=== PATIENT | female | born 1980 | race Caucasian/White ===

== ENCOUNTER → 2020-04-18 15:52 | Outpatient (CLI) | payer OTHER, SELFPAY ==
[2020-04-18 17:42] LABS: Absolute Lymphocyte Count 2.85 X10^3/uL (0.83-4.51); Absolute Neutrophil Count 7.7 X10^3/uL (2.0-7.7); Basophil# 0.09 X10^3/uL; Basophil% 0.8 % (0-1); Eosinophil# 0.35 X10^3/uL; Hematocrit 37.4 % (37-47); Hemoglobin 11.9 g/dL (12.0-15.0); Lymphocyte # 2.85 X10^3/ul (4.0); Lymphocyte % 24.2 % (19-41); Mean Corp Hgb Conc 31.8 g/dL (32-36); Mean Corpuscular Hgb 27.9 pg (27.0-32.0); Mean Corpuscular Volume 87.6 fL (81-99); Monocyte# 0.77 X10^3/uL; Monocyte% 6.5 % (0-10); NRBC Flagged by Analyzer 0 % (0-5); Neutrophil # 7.68 X10^3/uL (2.7-7.7); Neutrophil % 65.1 % (47-70); Platelet Count 319 K/mm3 (150-450); RBC Distribution Width CV 14.1 % (11.6-14.6); RBC Distribution Width SD 45.3 fl (35.1-43.9); Red Blood Count 4.27 M/mm3 (4.2-5.4); White Blood Count 11.8 K/mm3 (4.4-11.0)
[2020-04-18 18:09] LABS: ALB/GLOB Ratio 0.8 RATIO (0.9-2.4); AST(SGOT) 14 U/L (15-37); Alanine Aminotransfer ALT/SGPT 21 U/L (13-56); Albumin, Serum 3.3 g/dL (3.2-5.0); Alkaline Phosphatase 89 U/L (45-117); Anion Gap 7 (5-15); BUN 15 mg/dL (7-18); BUN/Creat Ratio 18.3 RATIO (10-20); Calcium,Total 8.6 mg/dL (8.5-10.1); Chloride 106 mmol/L (98-107); Creatinine, Serum 0.82 mg/dL (0.55-1.02); EST Glomerular Filtration Rate 83 mL/min (>60); Est Glom Filt Rate - Afr Amer 100 mL/min (>60); Globulin 3.9 g/dL (2.2-4.2); Glucose 87 mg/dL (74-106); Potassium 3.8 mmol/L (3.5-5.1); Protein, Total 7.2 g/dL (6.4-8.2); Sodium Level 138 mmol/L (136-145); Thyroid Stim Hormone (TSH) 2.63 uIU/mL (0.358-3.74)
== END ==
PROVIDERS: PCP Family Medicine; Referring Provider Family Medicine; Visit Provider Family Medicine
DX: R53.83 Other fatigue (principal)
CPT/HCPCS: 36415; 80053; 84443; 85025

== ENCOUNTER → 2021-03-05 17:37 | Outpatient (CLI) | payer OTHER, SELFPAY | PROVIDERS: PCP Family Medicine; Visit Provider Nurse Practitioner Family | DX: U07.1 COVID-19 (principal) | CPT/HCPCS: 87635; U0005; U0003 ==

== ENCOUNTER 2021-03-10 12:57 | Outpatient (CLI) | payer OTHER, SELFPAY ==
[2021-03-10 13:05] VITALS: BP 154/94; PULSE 104; RESP 20; TEMP 37.1; O2SAT 98; BMI 66.5
[2021-03-10] MEDS: 0.9% Saline Lock 10 ML Syringe IV (13:19)
[2021-03-10 14:17] VITALS: BP 123/91; PULSE 79; RESP 16; TEMP 36.8; O2SAT 98
[2021-03-10 15:01] VITALS: BP 123/90; PULSE 80; RESP 16; TEMP 36.3; O2SAT 100
== END 2021-03-10 15:15 | disposition home or self-care (01) ==
LOC: MS3OUT 12:58 → MS3 12:58
PROVIDERS: PCP Family Medicine; Referring Provider Nurse Practitioner Adult Health; Visit Provider Nurse Practitioner Adult Health
DX: Z23 Encounter for immunization (principal); U07.1 COVID-19
CPT/HCPCS: J7050; M0245; Q0245; A4216

== ENCOUNTER 2021-07-16 20:32 | Emergency (ER) | payer OTHER, SELFPAY ==
[2021-07-16 20:33] VITALS: BP 151/105; PULSE 85; RESP 18; TEMP 36.4; O2SAT 100; BMI 72.4
--- NOTE | 2021-07-16 20:43 | EDS_ITS ---
HPI History of Present Illness Chief Complaint: Upper Extremity Injury Detail of Chief Complaint: Left hand Informant: patient Occured/Mechanism Mechanism/Context: Yes blunt trauma Onset/Context/Timing Onset: Hours (Approximately 1 hour prior to presentation) Context: Sudden Onset Timing: Continuous Quality of Pain: Aching Location: Left hand, finger, Current Severity: Mild Maximum Severity: Moderate Worsened by: Use Relieved by: Nothing Associated Symptoms Associated Symptoms: Negative for Parasthesia, Weakness and Loss of Funtion Narrative Narrative: Patient is a 41-year-old [id number] woman who presents with injury to her left hand. Dog pulled the leash and hand slammed against a fence. She presents because of pain that she localizes to the thumb index long finger of her left hand. Tetanus Immunization: 5-10 years Prior similar symptoms: No Recent Illness/Hospitalization: No PFSH PFSH Medical History no medical history Home Medications NK 07/16/21 [History Last Taken Unknown] Allergy/AdvReac Type Severity Reaction Status Date / Time cephalexin Allergy Intermediate Itching Verified 07/16/21 20:33 sulfamethoxazole Allergy Intermediate Itching Verified 07/16/21 20:33 [From Bactrim] trimethoprim [From Bactrim] Allergy Intermediate Itching Verified 07/16/21 20:33 Family History no significant family his Surgical History (Updated 07/16/21 @ 20:54 by Magali Graham) H/O adenoidectomy History of placement of ear tubes Hx of tonsillectomy S/P ear surgery Social History household members: spouse Smoking Status: Never smoker substance use type: does not use ROS ROS ED Musculoskeletal Musculoskeletal: Reports other Details: Left hand pain involving thumb, index and long finger ; Denies back pain, myalgias or neck pain Integumentary Reports Abrasions; Denies abscess or rash Neurologic Neurologic: Denies paresthesias or weakness Hematologic/Lymphatic Hematologic/Lymphatic: Denies easy bleeding or easy bruising EXAM Physical Exam Const Vital Signs: 07/16/21 20:33 Temperature 97.6 F L Temperature Source Temporal Pulse Rate 85 Respiratory Rate 18 Blood Pressure 151/105 H Blood Pressure Mean 120 Pulse Ox 100 Oxygen Delivery Method Room Air Positive well nourished, well developed and obese General Appearance ED: well developed; Negative for cyanotic, diaphoretic or NAD Nutritional Appearance: obese HEENT normocephalic Eyes PERRL and EOMs intact bilaterally Neck supple Resp normal respiratory effort Cardio regular rate and regular rhythm Extremity full ROM; Negative for normal to inspection Extremity Narrative: There is ecchymosis over the dorsal radial side of the left hand and the thumb, index and long finger. Median, radial and ulnar function intact. The extensor pollicis longus and brevis are intact. The extensor indicis I and a sensor commonest tendon are intact. There is pain to all patient over the proximal, middle and distal phalanx of the index finger and the proximal and distal phalanx of the thumb. There is no subungual hematoma noted. General Extremety ED: Negative for edema General Extremity: Negative for edema Neuro oriented x3, CN's II-XII intact bilaterally and no focal motor deficits Sensorium / Orientation: alert Psych mental status grossly normal Skin Lesions: no lesions Rashes: no rashes Trauma: no lacerations or abrasions MDM MDM MDM Narrative Medical decision making narrative: X-rays obtained to evaluate for contusion versus fracture patient was medicated with NSAID and Valmora. Radiography Diagnostic Testing: Three-view x-ray of the left hand interpreted independently by me at 2130 is negative for fracture, dislocation or subluxation and there is no evidence of foreign body. Discharge Plan Triage Chief Complaint: Upper Extremity Injury ED Provider: Albino Redyd Dx/Rx/DC Orders Clinical Impression: Contusion of left hand including fingers Instructions: ED Hand Contusion Prescriptions: No Action NK RF: 0 Primary Care Provider: Ana Cook Referrals: Ana Cook MD [Primary Care Provider] - As Needed Activity Restrictions/Additional Instructions: 1. You may take either 4 Advil tablets every 8 hours or 2 Aleve tablets every 12 hours for the next 2 to 3 days for pain 2. Apply ice 6-8 times a day for the next 2 to 3 days Disposition Disposition: Home, Self Care
[2021-07-16 20:51] VITALS: BP 145/85; PULSE 77; TEMP 36.4; O2SAT 100
[2021-07-16] MEDS: HYDROcodone Bitartrate/Apap 5/325 Tablet PO (21:15)
[2021-07-16] MEDS: Naproxen 500 MG Tablet PO (21:15)
--- NOTE | 2021-07-16 21:25 | RAD_ITS ---
STUDY: LEFT HAND X-RAY SERIES (3 VIEWS) OF 2117 HOURS ON 07/16/2021 REASON FOR EXAM: 41-year-old female with a left hand injury and pain. TECHNIQUE: 3. view(s) of the hand. COMPARISON: None. FINDINGS: No findings of fractures or dislocations. No significant arthritic or degenerative changes. No osseous lytic, sclerotic or mass lesions. Normal radiocarpal articulation. Normal distal radioulnar joint. Normal visualized carpal bones. Normal carpal articulations Normal carpometacarpal articulation of the thumb. Normal second through fifth carpometacarpal joints. Normal metacarpi. Normal metacarpophalangeal joint of the thumb. Normal interphalangeal joint of the thumb. Normal proximal and distal phalanges of the thumb. Normal metacarpophalangeal joints of the second through fifth fingers. Normal proximal and distal interphalangeal joints of the second through fifth fingers. Normal phalanges of the second through fifth fingers. The soft tissue structures are unremarkable. RAD/Hand Min 3 Views IMPRESSION: 1. Normal x-ray examination of the hand. 2. No fractures or dislocations. Electronically Signed: Antonio Hawkins MD at 22:37 EDT ,
[2021-07-16 21:55] VITALS: BP 134/78; PULSE 78; RESP 16; O2SAT 98
== END 2021-07-16 21:57 | disposition home or self-care (01) ==
PROVIDERS: Emergency Provider Emergency Medicine; PCP Family Medicine; Visit Provider Emergency Medicine
DX: S60.222A Contusion of left hand, initial encounter (principal); S67.20XA Crushing injury of unspecified hand, initial encounter; W23.0XXA Caught, crushed, jammed, or pinched between moving objects, initial encounter
CPT/HCPCS: 73130; 96374; 99283

== ENCOUNTER → 2022-11-12 | Outpatient (CLI) | payer OTHER, SELFPAY ==
[2022-11-12 18:10] LABS: Insulin 14.3 mU/L (2.6-37.6)
[2022-11-12 18:14] LABS: Hemoglobin A1c 5.1 % (3.8-5.6)
[2022-11-12 18:17] LABS: ALB/GLOB Ratio 0.9 RATIO (0.9-2.4); AST(SGOT) 16 U/L (15-37); Alanine Aminotransfer ALT/SGPT 26 U/L (13-56); Albumin, Serum 3.6 g/dL (3.2-5.0); Alkaline Phosphatase 91 U/L (45-117); Anion Gap 5 (5-15); BUN 14 mg/dL (7-18); BUN/Creat Ratio 18.2 RATIO (10-20); Calcium,Total 9.3 mg/dL (8.5-10.1); Chloride 107 mmol/L (98-107); Creatinine, Serum 0.77 mg/dL (0.55-1.02); EST Glomerular Filtration Rate 88 mL/min (>60); Est Glom Filt Rate - Afr Amer 106 mL/min (>60); Glucose 91 mg/dL (74-106); Protein, Total 7.6 g/dL (6.4-8.2); Sodium Level 138 mmol/L (136-145); Thyroid Stim Hormone (TSH) 1.86 uIU/mL (0.358-3.74)
[2022-11-19 10:12] LABS: HPV HC, High Risk Negative
== END | disposition home or self-care (01) ==
LOC: MFPLAB 14:49
PROVIDERS: PCP Family Medicine; Visit Provider Family Medicine
DX: E66.01 Morbid (severe) obesity due to excess calories (principal); Z12.4 Encounter for screening for malignant neoplasm of cervix
CPT/HCPCS: 36415; 80053; 83036; 83525; 84443; 87624; 88175; G0145

== ENCOUNTER → 2022-12-02 | Outpatient (CLI) | payer OTHER, SELFPAY ==
--- NOTE | 2022-12-02 08:05 | RAD_ITS ---
STUDY: X-RAY - ESOPHAGUS (BARIUM SWALLOW) WITH FLUOROSCOPY REASON FOR EXAM: Female, 42 years old. Food sticking. 12 mm tablet only TECHNIQUE: 16 view(s) of the esophagus were obtained following swallowing of barium. FLUOROSCOPY TIME (if supplied): (33 seconds) minutes/seconds. 42.58 mGy COMPARISON: None. FINDINGS: There is no demonstrated esophageal foreign body. There is no demonstrated stricture or mucosal abnormality. Normal gastroesophageal junction, without a demonstrated hiatal hernia. The patient ingested a 12 mm tablet of barium. The tablet this trapped at the gastroesophageal junction. Normal visualized aortic arch and descending thoracic aorta. Normal visualized pulmonary parenchyma. Normal visualized osseous structures of the thorax. RAD/Esophagus Dual Contrast IMPRESSION: The 12 mm tablet at bedtime is trapped at the gastroesophageal junction. Endoscopic correlation is recommended. Electronically Signed: Osmin Morrison MD at 8:58 EDT ,
--- NOTE | 2022-12-02 08:21 | BI_ITS ---
MAMMOGRAPHY - BILATERAL SCREENING REASON FOR EXAM: Female, 42 years old. Routine annual screening examination. PERTINENT HISTORY: Aunt with breast cancer. TECHNIQUE: Digital bilateral breast javier (3D mammographic acquisition) in the CC and MLO projections. 2-D mediolateral oblique (MLO) and craniocaudad (CC) views of both breasts were obtained. CAD: Full Field Digital Mammography with Computer Added Detection was performed. COMPARISON: None. Baseline examination. FINDINGS: Breast Composition: The breasts are heterogeneously dense, which may obscure small masses. There are no dominant masses or suspicious calcifications. No other significant abnormalities are identified. BI/SCRN MAMM (CAD)W/JAVIER BILAT IMPRESSION: Negative screening mammogram. Yearly followup mammogram recommended. (A) ASSESSMENT CATEGORY: BIRADS Category 1: Negative. A letter regarding these results will be sent to the patient by the facility within 30 days. Approximately 10% of breast cancers are not detected by mammography. A normal mammogram should not delay biopsy of a clinically suspicious abnormality. [id number] Electronically Signed: Osmin Morrison MD at 9:08 EDT ,
== END | disposition home or self-care (01) ==
LOC: RAD 07:46
PROVIDERS: PCP Family Medicine; Referring Provider Family Medicine; Visit Provider Family Medicine
DX: Z12.31 Encounter for screening mammogram for malignant neoplasm of breast (principal); Z80.3 Family history of malignant neoplasm of breast; R13.10 Dysphagia, unspecified
CPT/HCPCS: 74221; 77063; 77067